=== PATIENT | male | born 1955 | race Caucasian/White ===

== ENCOUNTER 2016-12-02 16:35 | Inpatient (IN) | payer BC ==
[2016-12-02] MEDS ORDERED: Sodium Chloride 0.9% 1000 ML 1,000 ML IV SCH (17:15)
--- NOTE | 2016-12-02 17:23 | ERPHSYRPT ---
- History of Present Illness Time Seen by Provider: 12/02/16 16:54 Historian: patient, family Exam Limitations: no limitations Patient Subjective Stated Complaint: constipation x 18 days. Triage Nursing Assessment: seen in er last week-dx gas. states last bm 18 days ago although he had diarrhea stool today. skin slight jaundice. seen in [facility] care. no swelling. no n/v Physician History: no BM x 2 weeks; slight loose stool yeaterday; REcently seen in [facility]; some abdominal discomfort; no N&V; no fever; no trauma; no CP or SOB; voids ok Timing/Duration: week(s) (2), gradual onset, worse Activities at Onset: none Quality: cramping Abdominal Pain Onset Location: generalized abdomen Pain Radiation: no radiation Severity of Pain-Max: mild Severity of Pain-Current: mild Modifying Factors: Improves With: eating Associated Symptoms: diarrhea (slight yesterday), loss of appetite Previous symptoms: no prior history Allergies/Adverse Reactions: acetaminophen [From Percocet] Adverse Reaction (Verified 12/02/16 16:59) codeine Adverse Reaction (Verified 12/02/16 16:59) oxycodone [From Percocet] Adverse Reaction (Verified 12/02/16 16:59) Home Medications: No Home Meds 1 [facility] UD 12/02/16 [History] Hx Tetanus, Diphtheria Vaccination/Date Given: Yes Hx Influenza Vaccination/Date Given: No Hx Pneumococcal Vaccination/Date Given: No Immunizations Up to Date: Yes - Review of Systems Constitutional: No Symptoms Eyes: No Symptoms Ears, Nose, & Throat: No Symptoms Respiratory: No Cough, No Dyspnea, No Wheezing Cardiac: No Chest Pain, No Palpitations, No Syncope Abdominal/Gastrointestinal: Abdominal Pain (miild diffuse cramping), Diarrhea ( slight x 1 day yestrday- ), Constipation, No Nausea, No Vomiting, No Hematemesis , No Hematochezia, No Melena Genitourinary Symptoms: No Symptoms Musculoskeletal: No Symptoms Skin: No Symptoms Neurological: No Symptoms Psychological: No Symptoms Endocrine: No Symptoms Hematologic/Lymphatic: No Symptoms Immunological/Allergic: No Symptoms - Past Medical History Pertinent Past Medical History: Yes Other Medical History: 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 rotator cuff. eye surgery--foriegn body-work related - Social History Smoking Status: Current every day smoker Exposure to second hand smoke: No Alcohol Use: Chronic (2-3 beers a day) Drug Use: none Patient Lives Alone: No Significant Family History: no pertinent family hx - Nursing Vital Signs Nursing Vital Signs: Initial Vital Signs Temperature 97.7 F Temperature Source Oral Pulse Rate 72 Respiratory Rate 15 Blood Pressure [] 135/78 Pain Intensity 0 - Physical Exam General Appearance: mild distress, alert, obese Eye Exam: PERRL/EOMI, eyes nml inspection, photophobia Ears, Nose, Throat Exam: normal ENT inspection, TMs normal, pharynx normal, moist mucous membranes Neck Exam: normal inspection, non-tender, supple, full range of motion, No meningismus, No JVD Respiratory Exam: normal breath sounds, lungs clear, airway intact, No chest tenderness, No respiratory distress, No crackles/rales, No rhonchi, No wheezing Cardiovascular Exam: regular rate/rhythm, normal heart sounds, normal peripheral pulses, capillary refill <2 sec, No murmur Gastrointestinal/Abdomen Exam: normal bowel sounds, distention (ascites), hepatomegaly (large), No tenderness, No mass, No guarding, No pulsatile mass, No rebound, No hernia, No splenomegaly, No bruit Rectal Exam: normal exam, normal rectal tone, No mass, No hemorrhoids, No black stool, No blood, No other (no impactions) Back Exam: normal inspection, normal range of motion, No CVA tenderness, No vertebral tenderness, No rash Extremity Exam: normal inspection, normal range of motion, No deedee's sign, No pedal edema Neurologic Exam: alert, oriented x 3, cooperative, dry cleaner helper II-XII nml as tested, normal mood/affect, nml cerebellar function, nml station & gait Skin Exam: warm, dry, No rash, No petechiae, No cyanosis, No diaphoresis SpO2 Interpretation: normal SpO2: 97 Oxygen Delivery: Room Air - Course Nursing assessment & vital signs reviewed: Yes - CT Exams Abdomen/Pelvis CT Interpretation: Tele-radiologist Report, Other (changes suspicious for mass in colon with dilation and partial obstruction) Ordered Tests: Active Orders 24 hr Category Date Time Status Bedrest with BRP/BSC ROUTINE Activity 12/02/16 19:29 Ordered Admission/Status Order ROUTINE Care 12/02/16 19:28 Ordered Call Admit Doctor for Orders ON ADMISSION Care 12/02/16 19:29 Ordered Code Status Order ROUTINE Care 12/02/16 19:28 Ordered IV Care Q6H Care 12/02/16 19:28 Ordered IV Insertion STAT Care 12/02/16 17:15 Active Re-Check Vital Signs STAT Care 12/02/16 17:15 Active Louie Butler, Cherie ROUTINE Care 12/02/16 19:28 Ordered Weight,Daily 0600 Care 12/02/16 19:28 Ordered NPO Diet 12/02/16 19:29 Ordered ABDOMEN AND PELVIS W/0 CONTRAS [CT] Stat Exams 12/02/16 17:25 Taken AMYLASE Stat Lab 12/02/16 17:20 Completed CBC W DIFF Stat Lab 12/02/16 17:20 Completed CMP Stat Lab 12/02/16 17:20 Completed CULTURE,URINE Stat Lab 12/02/16 17:40 Received Ethyl Alcohol,Urine Stat Lab 12/02/16 17:40 Completed LIPASE Stat Lab 12/02/16 17:20 Completed Lactic Acid Stat Lab 12/02/16 17:30 Completed Occult Blood,Stool Other Stat Lab 12/02/16 17:30 Completed PROTIME WITH INR Stat Lab 12/02/16 17:20 Completed UA W/ MICROSCOPIC Stat Lab 12/02/16 17:40 Completed Transfer Order Routine Transfer 12/02/16 19:27 Ordered Medication Summary Generic Name Dose Route Start Last Admin Trade Name Freq PRN Reason Stop Dose Admin Sodium Chloride 1,000 mls @ 50 mls/hr 12/02/16 17:15 12/02/16 17:52 Sodium Chloride 0.9% 1000 Ml IV 01/01/17 17:14 50 mls/hr .Q20H SAJI Administration Potassium Chloride 40 meq 12/03/16 10:00 12/02/16 19:28 Potassium Chl 40 Meq/30 Ml Oral Solution PO 01/02/17 09:59 40 meq DAILY SAJI Administration Lab/Rad Data: Laboratory Result Diagrams 12/02/16 17:20 12/02/16 17:20 Laboratory Results 12/02/16 12/02/16 12/02/16 Range/Units 17:40 17:40 17:30 WBC (4.0-10.5) K/mm3 RBC (4.1-5.6) M/mm3 Hgb (12.5-18.0) gm/dl Hct (42-50) % MCV (78-100) fl MCH (26-32) pg MCHC (32-36) g/dl RDW (11.5-14.0) % Plt Count (150-450) K/mm3 MPV (6-9.5) fl Gran % (36.0-66.0) % Lymphocytes % (24.0-44.0) % Monocytes % (0.0-12.0) % Eosinophils % (0.00-5.0) % Basophils % (0.0-0.4) % Basophils # (0-0.4) INR (0.8-3.0) Sodium (136-145) mEq/L Potassium (3.5-5.1) mEq/L Chloride (98-107) mEq/L Carbon Dioxide (21-32) mEq/L Anion Gap (5-15) MEQ/L BUN (9-20) mg/dL Creatinine (0.55-1.30) mg/dl Estimated GFR ML/MIN Glucose (70-110) MG/DL Lactic Acid (0.4-2.0) Calcium (8.5-10.1) mg/dL Total Bilirubin (0.2-1.0) mg/dL AST (15-37) U/L ALT (12-78) U/L Alkaline Phosphatase (46-116) U/L Serum Total Protein (6.4-8.2) gm/dL Albumin (3.4-5.0) g/dL Amylase (25-115) U/L Lipase (73-393) U/L Ur Collection Type CLEAN CATCH Urine Color DARK YELLOW (YELLOW) Urine Appearance CLEAR (CLEAR) Urine pH 6.0 6.0 (5-6) Ur Specific [place] 1.015 (1.005-1.025) Urine Protein TRACE (Negative) Urine Ketones NEGATIVE (NEGATIVE) Urine Blood 5-10 (0-5) Erwin/ul Urine Nitrite NEGATIVE (NEGATIVE) Urine Bilirubin MODERATE (NEGATIVE) Urine Urobilinogen 1 (0-1) mg/dL Ur Leukocyte Esterase NEGATIVE (NEGATIVE) Urine Microscopic RBC 5-10 (0-2) /HPF Urine Microscopic WBC 5-10 (0-5) /HPF Ur Epithelial Cells FEW (FEW) /HPF Urine Bacteria MODERATE (NEGATIVE) /HPF Urine Mucus MANY (NEGATIVE) /HPF Urine Glucose NEGATIVE (NEGATIVE) mg/dL Stool Occult Blood NEGATIVE (Negative) Urine Ethyl Alcohol 4 (0.00-20) mg/dl Specimen Received 12/02/16 1750 12/02/16 12/02/16 12/02/16 Range/Units 17:30 17:20 17:20 WBC (4.0-10.5) K/mm3 RBC (4.1-5.6) M/mm3 Hgb (12.5-18.0) gm/dl Hct (42-50) % MCV (78-100) fl MCH (26-32) pg MCHC (32-36) g/dl RDW (11.5-14.0) % Plt Count (150-450) K/mm3 MPV (6-9.5) fl Gran % (36.0-66.0) % Lymphocytes % (24.0-44.0) % Monocytes % (0.0-12.0) % Eosinophils % (0.00-5.0) % Basophils % (0.0-0.4) % Basophils # (0-0.4) INR 1.11 (0.8-3.0) Sodium 136 (136-145) mEq/L Potassium 3.0 L* (3.5-5.1) mEq/L Chloride 97 L (98-107) mEq/L Carbon Dioxide 27.0 (21-32) mEq/L Anion Gap 15.1 H (5-15) MEQ/L BUN 8 L (9-20) mg/dL Creatinine 0.86 (0.55-1.30) mg/dl Estimated GFR > 60 ML/MIN Glucose 98 (70-110) MG/DL Lactic Acid 1.3 (0.4-2.0) Calcium 9.3 (8.5-10.1) mg/dL Total Bilirubin 0.50 (0.2-1.0) mg/dL AST 14 L (15-37) U/L ALT 8 L (12-78) U/L Alkaline Phosphatase 85 (46-116) U/L Serum Total Protein 8.0 (6.4-8.2) gm/dL Albumin 3.1 L (3.4-5.0) g/dL Amylase 19 L (25-115) U/L Lipase 65 L (73-393) U/L Ur Collection Type Urine Color (YELLOW) Urine Appearance (CLEAR) Urine pH (5-6) Ur Specific [place] (1.005-1.025) Urine Protein (Negative) Urine Ketones (NEGATIVE) Urine Blood (0-5) Erwin/ul Urine Nitrite (NEGATIVE) Urine Bilirubin (NEGATIVE) Urine Urobilinogen (0-1) mg/dL Ur Leukocyte Esterase (NEGATIVE) Urine Microscopic RBC (0-2) /HPF Urine Microscopic WBC (0-5) /HPF Ur Epithelial Cells (FEW) /HPF Urine Bacteria (NEGATIVE) /HPF Urine Mucus (NEGATIVE) /HPF Urine Glucose (NEGATIVE) mg/dL Stool Occult Blood (Negative) Urine Ethyl Alcohol (0.00-20) mg/dl Specimen Received 12/02/16 Range/Units 17:20 WBC 9.8 (4.0-10.5) K/mm3 RBC 5.28 (4.1-5.6) M/mm3 Hgb 15.9 (12.5-18.0) gm/dl Hct 47.1 (42-50) % MCV 89.2 (78-100) fl MCH 30.1 (26-32) pg MCHC 33.8 (32-36) g/dl RDW 13.0 (11.5-14.0) % Plt Count 401 (150-450) K/mm3 MPV 9.8 H (6-9.5) fl Gran % 69.5 H (36.0-66.0) % Lymphocytes % 18.3 L (24.0-44.0) % Monocytes % 10.6 (0.0-12.0) % Eosinophils % 1.2 (0.00-5.0) % Basophils % 0.4 (0.0-0.4) % Basophils # 0.04 (0-0.4) INR (0.8-3.0) Sodium (136-145) mEq/L Potassium (3.5-5.1) mEq/L Chloride (98-107) mEq/L Carbon Dioxide (21-32) mEq/L Anion Gap (5-15) MEQ/L BUN (9-20) mg/dL Creatinine (0.55-1.30) mg/dl Estimated GFR ML/MIN Glucose (70-110) MG/DL Lactic Acid (0.4-2.0) Calcium (8.5-10.1) mg/dL Total Bilirubin (0.2-1.0) mg/dL AST (15-37) U/L ALT (12-78) U/L Alkaline Phosphatase (46-116) U/L Serum Total Protein (6.4-8.2) gm/dL Albumin (3.4-5.0) g/dL Amylase (25-115) U/L Lipase (73-393) U/L Ur Collection Type Urine Color (YELLOW) Urine Appearance (CLEAR) Urine pH (5-6) Ur Specific [place] (1.005-1.025) Urine Protein (Negative) Urine Ketones (NEGATIVE) Urine Blood (0-5) Erwin/ul Urine Nitrite (NEGATIVE) Urine Bilirubin (NEGATIVE) Urine Urobilinogen (0-1) mg/dL Ur Leukocyte Esterase (NEGATIVE) Urine Microscopic RBC (0-2) /HPF Urine Microscopic WBC (0-5) /HPF Ur Epithelial Cells (FEW) /HPF Urine Bacteria (NEGATIVE) /HPF Urine Mucus (NEGATIVE) /HPF Urine Glucose (NEGATIVE) mg/dL Stool Occult Blood (Negative) Urine Ethyl Alcohol (0.00-20) mg/dl Specimen Received reviewed - Progress Progress: unchanged, improved, re-examined (after tests) Progress Note: 12/02/16 17:23 family at bedside 12/02/16 18:16 recheck; family at bedside; feeling some better; stool neg for blood; cT abd pending; CBC wnl; INR 1.11; ETOH -4; u/a trace prot, neg leuk and nit; ; BS and lytes ok except low K+ = 3.0; camacho and lip ok; liver enzymes low and albumin low ; will give K+ and recheck 12/02/16 19:25 Dr Crespo here to review CT and admit; Patient and family consulted and agree CT show partial obstruction ? etiology Discussed with : Sandra (Dr Crespo consulted in surgery to see for disposition; here to see patient and admit) Will see patient in: hospital (full admit) Counseled pt/family regarding: lab results, diagnosis, need for follow-up, rad results - Departure Time of Disposition: 19:26 Departure Disposition: In-patient Admission Clinical Impression: Bowel obstruction, Hypokalemia Condition: Serious Critical Care Time: No Referrals: DOCTOR,NO FAMILY [Primary Care Provider] - ESTEPHANIE CRESPO [ACTIVE STAFF] -
[2016-12-02] MEDS ORDERED: Sodium Chloride 0.9% 1000 ML 1,000 ML ONE (17:30)
[2016-12-02 17:36] LABS: BASOPHIL % 0.4 % (0.0-0.4); Eosinophil % 1.2 % (0.00-5.0); Granulocytes % 69.5 % (36.0-66.0); Lymphocytes % 18.3 % (24.0-44.0); Mean Cell Volume 89.2 fl (78-100); Mean Corpuscular Hemoglobin 30.1 pg (26-32); Mean Platelet Volume 9.8 fl (6-9.5); Monocytes % 10.6 % (0.0-12.0); Platelet Count 401 K/mm3 (150-450); Red Blood Count 5.28 M/mm3 (4.1-5.6); White Blood Count 9.8 K/mm3 (4.0-10.5)
[2016-12-02 17:48] LABS: INR 1.11 (0.8-3.0); PROTIME 12.6 SECONDS (8.83-12.87)
[2016-12-02 18:01] LABS: ALBUMIN 3.1 g/dL (3.4-5.0); ALKALINE PHOSPHATASE 85 U/L (46-116); ANION GAP 15.1 MEQ/L (5-15); BLOOD UREA NITROGEN 8 mg/dL (9-20); CHLORIDE 97 mEq/L (98-107); Glucose 98 MG/DL (70-110); LIPASE 65 U/L (73-393); SGOT/AST 14 U/L (15-37); SGPT/ALT 8 U/L (12-78); SODIUM 136 mEq/L (136-145)
[2016-12-02 18:06] LABS: Collection Type CLEAN CATCH
[2016-12-02 18:07] LABS: ADD URINE CULTURE? YES (NO); Bacteria MODERATE /HPF (NEGATIVE); Bilirubin MODERATE (NEGATIVE); COMPLETE URINE MICROSCOPIC? YES; Epithelial Cells FEW /HPF (FEW); Glucose NEGATIVE (NEGATIVE); Leukocyte Esterase NEGATIVE (NEGATIVE); Mucus MANY /HPF (NEGATIVE)
[2016-12-02] MEDS ORDERED: POTASSIUM CHL 40 MEQ/30 ML ORAL SOLUTION ONE (19:27)
[2016-12-02] MEDS ORDERED: Zofran 4 MG/2 ML VIAL IV PRN (19:28)
[2016-12-02] MEDS ORDERED: Golytely Solution 4000 ML PO ONE (21:00)
[2016-12-02] MEDS: Nicoderm CQ 21 MG TOP SCH (21:01)
[2016-12-03] MEDS: Sodium Chloride 0.9% 1000 ML 1,000 ML IV SCH ×2 (05:16→16:22)
--- NOTE | 2016-12-03 08:50 | XRAY ---
Indication: No bowel movements for 18 days. Multiple contiguous axial images obtained through the abdomen and pelvis without contrast as ordered. Comparison: None Lung bases demonstrates bibasilar atelectasis/scarring right greater than left. No infiltrate, consolidation, or effusion. Heart is not enlarged. Tiny right infrahilar calcified nodes. Small hiatal hernia. Mid to proximal sigmoid colon demonstrates marked abnormal wall thickening/stranding at least 10 cm in length favoring mass. The more proximal colon is abnormally fluid distended up to 9 cm in dimension with the distal sigmoid colon decompressed consistent with obstruction. There is tiny pelvic and perihepatic/perisplenic free fluid. No free air. In the left lobe of the liver near the dome of the diaphragm, there is a 12 mm indeterminate hypodense lesion. Remaining liver, gallbladder, pancreas, spleen, adrenal glands, kidneys, ureters, and bladder appear unremarkable for noncontrast exam. Mild/moderate aortoiliac calcifications without AAA. No pathologic retroperitoneal lymphadenopathy. Osseous structures intact with mild spinal degenerative changes. Impression: 1. Large sigmoid mass producing high-grade obstruction as detailed. Tiny abdominal/pelvic free fluid presumed reactive. 2. Indeterminate left lobe hepatic hypodense lesion. Rule out cyst versus hemangioma versus metastasis. CT or MRI with contrast with special attention to the liver may yield further information. 3. Small hiatal hernia. CT DI 23.69
[2016-12-03] MEDS: POTASSIUM CHL 40 MEQ/30 ML ORAL SOLUTION PO SCH (09:29)
[2016-12-03] MEDS ORDERED: POTASSIUM CHL 40 MEQ/30 ML ORAL SOLUTION PO SCH (10:00)
[2016-12-03] MEDS ORDERED: CITROMA 296 ML PO ONE (12:05)
[2016-12-03] MEDS ORDERED: Golytely Solution 4000 ML PO ONE (14:00)
[2016-12-03] MEDS: Nicoderm CQ 21 MG TOP SCH (21:20)
[2016-12-04] MEDS: Sodium Chloride 0.9% 1000 ML 1,000 ML IV SCH ×3 (02:21→22:52)
[2016-12-04] MEDS ORDERED: Lactated Ringers 1,000 ML IV SCH (09:30)
[2016-12-04] MEDS ORDERED: DIPRIVAN 200 MG/20 ML IV ONE (12:44)
[2016-12-04] MEDS ORDERED: Versed 2 MG/2 ML Injection IV ONE (12:44)
[2016-12-04] MEDS: POTASSIUM CHL 40 MEQ/30 ML ORAL SOLUTION PO SCH (12:51)
[2016-12-04] MEDS: Nicoderm CQ 21 MG TOP SCH (20:37)
[2016-12-05] MEDS: Sodium Chloride 0.9% 1000 ML 1,000 ML IV SCH ×2 (08:57→19:41)
[2016-12-05] MEDS: POTASSIUM CHL 40 MEQ/30 ML ORAL SOLUTION PO SCH (08:58)
[2016-12-05] MEDS ORDERED: CITROMA 296 ML PO SCH (16:00)
[2016-12-05] MEDS: Nicoderm CQ 21 MG TOP SCH (19:58)
[2016-12-06] MEDS: Sodium Chloride 0.9% 1000 ML 1,000 ML IV SCH (05:48)
[2016-12-06] MEDS ORDERED: MILK OF MAGNESIA 30 ML PO PRN (08:00)
[2016-12-06 09:02] VITALS: PULSE 70
--- NOTE | 2016-12-06 09:37 | OP ---
SURGERY DATE/TIME: 12/04/2016 1126 PREOPERATIVE DIAGNOSIS: Possible colon obstruction, possible colon mass. POSTOPERATIVE DIAGNOSIS: Possible colon obstruction, possible colon mass. PROCEDURE: Colonoscopy. SURGEON: Agus Crespo M.D. ANESTHESIA: MAC. INDICATION: The patient was admitted yesterday with severe obstipation and was admitted to my service after being referred by Dr. Blanco from the emergency room. He had been over two weeks without a bowel movement. He subsequently had a little bit of the runs but nothing substantial. He had a CT scan showing massive dilatation of the colon and there was suggestion of a large pelvic mass encompassing the colon. He has had very little medical history. He was admitted. He was given bowel prep and he presents for colonoscopic examination. DESCRIPTION OF PROCEDURE: Taken to the endoscopy. MAC sedation provided. Anal digital examination satisfactory. The scope introduced. The mucosa was very thick. It was almost like rugae of the colon in areas. There were a few areas that had just a little touch of what was probably pseudo-polyps. There were no ulcers. There was no bleeding. There was marked thickening through the sigmoid. It almost seemed pseudo-obstructed in the sigmoid. With care and patience and persistence with the scope and just gassing this up it did distended and the scope advanced. The scope was able to be advanced to the cecum. On circumferential withdrawal the same finding. The colon was a little more normal on the right side on the transverse side. It was less thick, less rugae present and then going down the descending sigmoid this became very thickened and did have a few incidental pseudo-polyps. I am planning on getting a barium enema examination. I did not biopsy the pseudo-polyps because then I would not be able to get a barium enema in the near term and I think this is important. I am wondering if this is pseudo-obstructed enough to consider even surgical decompression or surgical intervention and although there is certainly no intraluminal blockage there is still major concern of what is giving the CT appearance externally. I am planning on getting a barium enema examination on Tuesday and this was discussed with the family. He will be kept on clear liquids.
[2016-12-06 09:46] LABS: ANION GAP 12.7 MEQ/L (5-15); BLOOD UREA NITROGEN 5 mg/dL (9-20); CHLORIDE 106 mEq/L (98-107); Carbon Dioxide 23.7 mEq/L (21-32); Glucose 97 MG/DL (70-110); Potassium 3.7 mEq/L (3.5-5.1); SODIUM 139 mEq/L (136-145)
[2016-12-06] MEDS: POTASSIUM CHL 40 MEQ/30 ML ORAL SOLUTION PO SCH (11:30)
[2016-12-06 11:45] VITALS: BP 133/82; O2SAT 95
--- NOTE | 2016-12-06 12:41 | XRAY ---
Exam: Single-contrast barium enema exam from 12/06/2016. Fluoroscopy time: 4 minutes. Comparison: CT of the abdomen and pelvis without IV contrast from 12/02/2016. Indication: Bloating and constipation for 20 days, no history of prior surgery. Findings: Preliminary supine and upright wood lather films of the abdomen were obtained. There is moderate aerated bowel across the upper abdomen and the left midabdomen within colon containing air-fluid levels. I also note some mild nonspecific prominence of some small bowel just above the left superior iliac crest. Although there is prominent aerated bowel down to the proximal sigmoid colon and some prominent aerated bowel within the rectum, no significant gas is seen between these latter 2 colon segments. There is a question of a soft tissue mass overlying the lower left sacroiliac joint region. No free intraperitoneal air is seen. There is moderate to marked degenerative disc disease at L5-S1. Other lateral osteophyte formation is seen throughout the thoracolumbar spine. No hepatosplenomegaly is seen. Because the abundant fluid within the colon lumen proximal to the sigmoid colon, I did not believe an air contrast barium enema could be easily accomplished. Therefore, a single-contrast barium enema was performed. A Bardex tip was placed in the patient's rectum. With the aid of balloon insufflation, I attempted to fill the colon in a retrograde fashion. Despite significant distention of the distal rectosigmoid colon, there was a marked tapering of the proximal sigmoid colon between a prominent aerated bowel loop of the distal descending colon and the mid sigmoid colon. This is best seen on the left lateral spot image. After a couple minutes, a small amount of contrast did get through this region, although the lumen at this level never fully distended. I believe there were a couple diverticula in this region. The contour of the colon appeared somewhat irregular suggesting some mucosal thickening. This extended into the distal sigmoid colon as well. Because of the abundant fluid and air seen within the colon proximal to the sigmoid colon on the wood lather image, I was not able to easily fill the proximal colon with barium. A small amount of contrast did reach portions of the right hemicolon. At this point, the patient was very uncomfortable, and I decided to decompress the patient's colon by draining the barium back into the bag. No conventional filled overhead images were obtained because of the patient's discomfort, although I did take multiple spot images. Postevacuation films revealed a relatively unremarkable appearance of the splenic flexure and descending colon. Aerated bowel is seen within an unremarkable transverse colon. Unfortunately, the cecum, ascending colon, and hepatic flexure were never optimally distended, but a small amount of contrast did reach these regions. I believe there is a moderate sized diverticulum along the medial aspect of the mid ascending colon. Impression: 1. There was a segment within the proximal sigmoid colon which was persistently abnormal. Initially, the lumen at this l level was markedly narrowed with only a string-like barium connection between the distal descending colon and mid sigmoid colon. Eventually, this filled slightly better, although it was never normal. I believe there are a couple small diverticula within the proximal sigmoid colon. The bowel wall appeared spastic and thickened at the abnormal loop within the proximal sigmoid colon. There is also significant spasm at this site. Primary differential possibilities are between diverticulitis and malignancy. Careful follow-up is warranted.
[2016-12-06 16:41] LABS: aANCA IgG Titer Not Indicated (Not Indicated); pANCA IgG Titer Not Indicated (Not Indicated)
[2016-12-07 22:25] LABS: S.Cerevisiae IgA 7.6 Units (0.0-24.9); S.Cerevisiae IgG 8.5 Units (0.0-24.9)
--- NOTE | 2016-12-15 11:00 | DS ---
ADMISSION DIAGNOSIS: 1. POSSIBLE COLON OBSTRUCTION. DISCHARGE DIAGNOSIS:1. PSEUDO-OBSTRUCTION WITH SOME LIMITED REAL COMPONENT. PROCEDURE: 1. Colonoscopy complete to cecum. 2. Barium enema examination. BRIEF HISTORY: Patient presents with what seems to be a colon obstruction from the Emergency Room. He was taken to endoscopy. There was a snug area through the sigmoid the scope was able to be teased through and the scope was able to be advanced to the cecum. As this was confusing, the difference between his CT scan and his colonoscopic examination, a barium enema was performed and again, Dr. Small was able to get this fluid through this area, although it did seem to be spasmed down and it did take some effort. He was feeling better. He was able to be advanced to discharge. Will see him back in the office. I think there is enough thickening and concern of this area and enough symptoms of this area, although it is not truly obstructed, it is organically, structurally, and physiologically semi-obstructed and that we could consider a semi-elective surgical intervention on this gentleman with resection of the sigmoid colon. He will return back to the office as we will offer him alternatives.
== END 2016-12-06 12:45 | disposition home or self-care (01) | DRG 392 ==
LOC: ED 16:35 → MED SURG 19:55
PROVIDERS: ADMIT Surgery; ATTEND Surgery
PROC: 0DJD8ZZ Inspection of Lower Intestinal Tract, Via Natural or Artificial Opening Endoscopic (ICD-10-PCS; principal; 2016-12-04)
DX: K59.8 Other specified functional intestinal disorders (principal)
CPT/HCPCS: 00810; 36000; 36415; 74176; 74270; 80048; 80053; 80320; 81000; 82150; 82272; 82378; 83605; 83690; 83986; 85025; 85610; 86255; 86256; 86671; 87077; 87086; 87186; 96360; 99285; J2250; J2704; A9270-GY